=== PATIENT | female | born 1945 | race Asian ===

== ENCOUNTER 2017-08-04 00:56 | Emergency (ER) | payer OTHER, MEDICARE ==
[2017-08-04] MEDS ORDERED: NA CHLORIDE 0.9% 1,000 ML ONE (01:40)
[2017-08-04] MEDS ORDERED: MORPHINE 4 MG/ML SYR ONE (01:40)
[2017-08-04] MEDS ORDERED: ONDANSETRON 4 MG/2 ML VIAL ONE (01:40)
[2017-08-04 02:29] LABS: Absolute Lymphocytes (CBC) 0.8 K/uL (0.7-4.9); Absolute Monocytes 0.4 K/uL (0.1-1.3); Absolute Neutrophil 6.6 K/uL (1.8-8.0); Basophils % 0.5 % (0-1.3); Eosinophils % 1.3 % (0-4.4); Lymphocytes % 9.9 % (15.3-44.8); MCH 29.9 pg (27.0-35.0); MCV 92.8 fL (80-100); MPV 9.8 fL (7.6-11.3); Monocytes % 5.2 % (3.3-12.3); RBC Red Blood Cell Count 4.53 M/uL (3.86-4.86)
[2017-08-04 02:35] LABS: Potassium 3.9 mEq/L (3.6-5.0)
[2017-08-04 02:41] LABS: Albumin 3.7 g/dL (3.2-5.5); Bilirubin Direct 0.1 mg/dL (0-0.2); Bilirubin Total 0.6 mg/dL (0.3-1.2); Protein, Total 6.2 g/dL (6.0-8.3)
--- NOTE | 2017-08-04 04:05 | ER ---
Nurse's Notes [facility] Name: Miriam Ojeda Age: 72 yrs Sex: Female : 1945 Arrival Date: 08/04/2017 Time: 00:57 Bed 19 Private MD: Diagnosis: Constipation Presentation: 08/04 01:09 Presenting complaint: Patient states: she is having abdominal pain x 6 hours has tried bb over the counter medications with no relief. Transition of care: patient was not received from another setting of care. Onset of symptoms was August 04, 2017. Risk Assessment: Do you want to hurt yourself or someone else? Patient reports no desire to harm self or others. Initial Sepsis Screen: Does the patient meet any 2 criteria? No. Patient's initial sepsis screen is negative. Does the patient have a suspected source of infection? No. Patient's initial sepsis screen is negative. Care prior to arrival: None. 01:09 Method Of Arrival: Ambulatory bb 01:09 Acuity: PELON 3 bb Historical: - Allergies: 01:14 No Known Allergies; bb - Home Meds: 01:14 aspirin 81 mg Oral TbEC 1 tab once daily [Active]; lisinopril 10 mg Oral tab 1 tab once bb daily [Active]; metformin 500 mg Oral tab 1 tab 2 times per day [Active]; pravastatin 10 mg Oral tab 1 tab once daily [Active]; - PMHx: 01:14 Diabetes - NIDDM; Hyperlipidemia; Hypertension; knee pain; nephrolithiasis; bb - PSHx: 01:14 Kidney stents; bb - Immunization history:: Adult Immunizations unknown. - Social history:: Smoking status: Patient/guardian denies using tobacco, Patient/guardian denies using alcohol, street drugs. - Ebola Screening: : No symptoms or risks identified at this time. Screenin:30 Abuse screen: Denies threats or abuse. Nutritional screening: No deficits noted. jd3 Tuberculosis screening: No symptoms or risk factors identified. Fall Risk None identified. Assessment: 01:25 General: Appears uncomfortable, Behavior is calm, cooperative, appropriate for age. jd3 Pain: Complains of pain in abdomen Quality of pain is described as aching, crampy. Neuro: Level of Consciousness is awake, alert, obeys commands, Oriented to person, place, time, situation. Cardiovascular: Heart tones S1 S2 present Capillary refill < 3 seconds Patient's skin is warm and dry. Respiratory: Airway is patent Respiratory effort is even, unlabored, Respiratory pattern is regular, symmetrical, Breath sounds are clear bilaterally. GI: Abdomen is round Bowel sounds present X 4 quads. Abd is soft and non tender X 4 quads. Reports constipation, cramping. : No signs and/or symptoms were reported regarding the genitourinary system. EENT: No signs and/or symptoms were reported regarding the EENT system. Derm: Skin is intact, Skin is dry, Skin is normal, Skin temperature is warm. Musculoskeletal: Circulation, motion, and sensation intact. Range of motion: intact in all extremities. 03:20 Reassessment: Patient appears in no apparent distress at this time. Patient and/or jd3 family updated on plan of care and expected duration. Pain level reassessed. Patient is alert, oriented x 3, equal unlabored respirations, skin warm/dry/pink. Patient states feeling better. 04:11 Reassessment: Patient appears in no apparent distress at this time. Patient and/or jd3 family updated on plan of care and expected duration. Pain level reassessed. Patient is alert, oriented x 3, equal unlabored respirations, skin warm/dry/pink. Patient states feeling better. 04:20 Reassessment: Patient appears in no apparent distress at this time. Patient and/or jd3 family updated on plan of care and expected duration. Pain level reassessed. Patient is alert, oriented x 3, equal unlabored respirations, skin warm/dry/pink. pt reported understanding of discharge instructions, even and steady gait upon discharge. Vital Signs: 01:14 BP 163 / 101; Pulse 78; Resp 18 S; Temp 97.9(O); Pulse Ox 97% on R/A; Weight 53.07 kg bb (R); Height 5 ft. 0 in. (152.40 cm) (R); Pain 10/10; 02:18 BP 126 / 83; Pulse 70; Resp 16 S; Pulse Ox 95% on R/A; Pain 0/10; jd3 03:20 BP 117 / 77; Pulse 66; Resp 18 S; Pulse Ox 95% on R/A; Pain 0/10; jd3 04:10 BP 123 / 84; Pulse 68; Resp 18 S; Pulse Ox 95% on R/A; Pain 0/10; jd3 01:14 Body Mass Index 22.85 (53.07 kg, 152.40 cm) bb ED Course: 00:57 Patient arrived in ED. am2 01:10 Triage completed. bb 01:14 Arm band placed on Patient placed in an exam room, on a stretcher, on pulse oximetry. bb Family accompanied patient. 01:25 Renny Castaneda RN is Primary Nurse. jd3 01:28 Cruz Santos NP is PHCP. pm1 01:28 Kevin Ashley MD is Attending Physician. pm1 01:30 Patient has correct armband on for positive identification. Placed in gown. Bed in low jd3 position. Call light in reach. Side rails up X2. Adult w/ patient. 01:50 Inserted saline lock: 22 gauge in right forearm, using aseptic technique. Blood jd3 collected. 03:[address] via wheelchair. kw1 03:14 CT Abd/Pelvis - W/Contrast In Process Unspecified. EDMS 03:27 CT completed. Patient tolerated procedure well. Patient moved back from CT. sj 04:13 No provider procedures requiring assistance completed. IV discontinued, intact, jd3 bleeding controlled, No redness/swelling at site. Pressure dressing applied. Administered Medications: 02:00 Drug: NS 0.9% 1000 ml Route: IV; Rate: 1000 ml; Site: right forearm; jd3 03:46 Follow up: Response: No adverse reaction; IV Status: Completed infusion; IV Intake: jd3 1000ml 02:01 Drug: morphine 2 mg Route: IVP; Site: right forearm; jd3 03:46 Follow up: Response: No adverse reaction; Pain is decreased jd3 02:01 Drug: Zofran 4 mg Route: IVP; Site: right forearm; jd3 03:46 Follow up: Response: No adverse reaction jd3 Intake: 03:46 IV: 1000ml; Total: 1000ml. jd3 Outcome: 04:04 Discharge ordered by . pm1 04:21 Discharged to home ambulatory, with family. jd3 04:21 Condition: stable 04:21 Discharge instructions given to patient, family, Instructed on discharge instructions, follow up and referral plans. medication usage, Demonstrated understanding of instructions, follow-up care, medications, Prescriptions given X 1. 04:22 Patient left the ED. jd3 Signatures: Dispatcher [employer] Karmen Espinosa Brenda, RN RN bb Cruz Santos, FREE LANCE ARTIST FREE LANCE ARTIST pm1 Briana Cortes am2 Renny Castaneda RN RN jd3 Wilhelm, Kimberly kw1 Corrections: (The following items were deleted from the chart) 03:10 02:47 [facility] moved to [facility] via [facility]. kw1 kw1
--- NOTE | 2017-08-04 04:05 | EDPHYS ---
Physician Documentation [facility] Name: Miriam Ojeda Age: 72 yrs Sex: Female : 1945 Arrival Date: 08/04/2017 Time: 00:57 Bed 19 Private MD: ED Physician Kevin Ashley HPI: 08/04 03:57 This 72 yrs old Female presents to ER via Ambulatory with complaints of Abdominal pm1 Pain, Abdominal Swelling. 03:57 The patient presents with abdominal pain in the lower abdomen. Onset: The pm1 symptoms/episode began/occurred 6 hour(s) ago. The symptoms do not radiate. Associated signs and symptoms: Pertinent positives: constipation, for 2 days, Pertinent negatives: nausea, vomiting, and diarrhea, dysuria, fever. The symptoms are described as crampy. Modifying factors: The symptoms are alleviated by nothing, the symptoms are aggravated by nothing. Severity of pain: in the emergency department the pain is actually worse. The patient has experienced similar episodes in the past, a few times, take colace in the past for constipation. The patient has not recently seen a physician. Historical: - Allergies: 01:14 No Known Allergies; bb - Home Meds: 01:14 aspirin 81 mg Oral TbEC 1 tab once daily [Active]; lisinopril 10 mg Oral tab 1 tab once bb daily [Active]; metformin 500 mg Oral tab 1 tab 2 times per day [Active]; pravastatin 10 mg Oral tab 1 tab once daily [Active]; - PMHx: 01:14 Diabetes - NIDDM; Hyperlipidemia; Hypertension; knee pain; nephrolithiasis; bb - PSHx: 01:14 Kidney stents; bb - Immunization history:: Adult Immunizations unknown. - Social history:: Smoking status: Patient/guardian denies using tobacco, Patient/guardian denies using alcohol, street drugs. - Ebola Screening: : No symptoms or risks identified at this time. ROS: 03:57 Constitutional: Negative for fever, chills, and weight loss, Eyes: Negative for injury, pm1 pain, redness, and discharge, ENT: Negative for injury, pain, and discharge, Neck: Negative for injury, pain, and swelling, Cardiovascular: Negative for chest pain, palpitations, and edema, Respiratory: Negative for shortness of breath, cough, wheezing, and pleuritic chest pain. 03:57 Back: Negative for injury and pain, : Negative for injury, bleeding, discharge, and swelling, MS/Extremity: Negative for injury and deformity, Skin: Negative for injury, rash, and discoloration, Neuro: Negative for headache, weakness, numbness, tingling, and seizure. 03:57 Abdomen/GI: Positive for abdominal pain, constipation, Negative for nausea, vomiting, and diarrhea. Exam: 03:57 Constitutional: This is a well developed, well nourished patient who is awake, alert, pm1 and in no acute distress. Head/Face: Normocephalic, atraumatic. Eyes: Pupils equal round and reactive to light, extra-ocular motions intact. Lids and lashes normal. Conjunctiva and sclera are non-icteric and not injected. Cornea within normal limits. Periorbital areas with no swelling, redness, or edema. ENT: Nares patent. No nasal discharge, no septal abnormalities noted. Tympanic membranes are normal and external auditory canals are clear. Oropharynx with no redness, swelling, or masses, exudates, or evidence of obstruction, uvula midline. Mucous membranes moist. Neck: Trachea midline, no thyromegaly or masses palpated, and no cervical lymphadenopathy. Supple, full range of motion without nuchal rigidity, or vertebral point tenderness. No Meningismus. Chest/axilla: Normal chest wall appearance and motion. Nontender with no deformity. No lesions are appreciated. Cardiovascular: Regular rate and rhythm with a normal S1 and S2. No gallops, murmurs, or rubs. Normal PMI, no JVD. No pulse deficits. Respiratory: Lungs have equal breath sounds bilaterally, clear to auscultation and percussion. No rales, rhonchi or wheezes noted. No increased work of breathing, no retractions or nasal flaring. 03:57 Back: No spinal tenderness. No costovertebral tenderness. Full range of motion. Skin: Warm, dry with normal turgor. Normal color with no rashes, no lesions, and no evidence of cellulitis. MS/ Extremity: Pulses equal, no cyanosis. Neurovascular intact. Full, normal range of motion. 03:57 Abdomen/GI: Inspection: abdomen appears normal, Bowel sounds: normal, Palpation: soft, mild abdominal tenderness, in the left lower quadrant, mass, that is pulsatile, rebound tenderness, is not appreciated. 03:57 Neuro: Orientation: is normal, Motor: is normal, Sensation: is normal, no obvious gross deficits. Vital Signs: 01:14 BP 163 / 101; Pulse 78; Resp 18 S; Temp 97.9(O); Pulse Ox 97% on R/A; Weight 53.07 kg bb (R); Height 5 ft. 0 in. (152.40 cm) (R); Pain 10/10; 02:18 BP 126 / 83; Pulse 70; Resp 16 S; Pulse Ox 95% on R/A; Pain 0/10; jd3 03:20 BP 117 / 77; Pulse 66; Resp 18 S; Pulse Ox 95% on R/A; Pain 0/10; jd3 04:10 BP 123 / 84; Pulse 68; Resp 18 S; Pulse Ox 95% on R/A; Pain 0/10; jd3 01:14 Body Mass Index 22.85 (53.07 kg, 152.40 cm) bb MDM: 01:28 Patient medically screened. pm1 03:57 Data reviewed: vital signs. Data interpreted: Pulse oximetry: on room air is 95 %. pm1 Interpretation: normal. Counseling: I had a detailed discussion with the patient and/or guardian regarding: the historical points, exam findings, and any diagnostic results supporting the discharge/admit diagnosis, radiology results, to return to the emergency department if symptoms worsen or persist or if there are any questions or concerns that arise at home. 08/04 01:33 Order name: Urine Microscopic Only pm1 08/04 01:33 Order name: Basic Metabolic Panel; Complete Time: 02:57 pm08/04 01:33 Order name: CBC with Diff; Complete Time: 02:57 pm08/04 01:33 Order name: Creatinine for Radiology; Complete Time: 02:57 pm08/04 01:33 Order name: Hepatic Function; Complete Time: 02:57 pm08/04 01:33 Order name: Lipase; Complete Time: 02:57 pm08/04 01:33 Order name: IV Saline Lock; Complete Time: 02:01 pm08/04 01:33 Order name: Labs collected and sent; Complete Time: 02:01 pm08/04 01:33 Order name: Urine Dipstick-Ancillary (obtain specimen); Complete Time: 03:50 pm1 08/04 01:33 Order name: CT Abd/Pelvis - W/Contrast pm1 08/04 04:14 Order name: Urine Dipstick--Ancillary (enter results) nathan Administered Medications: 02:00 Drug: NS 0.9% 1000 ml Route: IV; Rate: 1000 ml; Site: right forearm; jd3 03:46 Follow up: Response: No adverse reaction; IV Status: Completed infusion; IV Intake: jd3 1000ml 02:01 Drug: morphine 2 mg Route: IVP; Site: right forearm; jd3 03:46 Follow up: Response: No adverse reaction; Pain is decreased jd3 02:01 Drug: Zofran 4 mg Route: IVP; Site: right forearm; jd3 03:46 Follow up: Response: No adverse reaction jd3 Disposition: 07:18 Co-signature as Attending Physician, Kevin Ashley MD Available for consultation at ps1 all times. . Disposition: 08/04/17 04:04 Discharged to Home. Impression: Constipation. - Condition is Stable. - Discharge Instructions: Constipation, Adult. - Prescriptions for Miralax 17 gram/dose Oral - take 1 packet by ORAL route once daily As needed dilute powder in 8 ounces of water or juice; 7 packet. - Medication Reconciliation Form, Thank You Letter form. - Follow up: Emergency Department; When: As needed; Reason: Worsening of condition. Follow up: Private Physician; When: 2 - 3 days; Reason: Recheck today's complaints, Continuance of care, Re-evaluation by your physician. - Problem is new. - Symptoms have improved. Signatures: Dispatcher [employer] EDRona Scott RN RN bb Marinas, Patrick, MANAGER STEEL MANAGER STEEL pm1 Renny Castaneda RN RN jd3 Singer, Phillip, MD MD ps1 Corrections: (The following items were deleted from the chart) 04:22 04:04 08/04/2017 04:04 Discharged to Home. Impression: Constipation. Condition is jd3 Stable. Forms are Medication Reconciliation Form, Thank You Letter, Antibiotic Education, Prescription Opioid Use. Follow up: Emergency Department; When: As needed; Reason: Worsening of condition. Follow up: Private Physician; When: 2 - 3 days; Reason: Recheck today's complaints, Continuance of care, Re-evaluation by your physician. Problem is new. Symptoms have improved. pm1
[2017-08-04 04:27] VITALS: TEMP 97.9
[2017-08-04 04:28] VITALS: O2SAT 95
[2017-08-04 04:30] VITALS: BP 123/84
[2017-08-04 06:20] LABS: Urine Bacteria <20 /HPF (<20); Urine Culture Reflex Order NOT NEEDED; Urine RBC <5 /HPF (NONE SEEN)
[2017-08-04 06:40] LABS: Urine Blood TRACE (NEG); Urine Glucose NEGATIVE (NEG); Urine Protein NEGATIVE (NEG); Urine Specific Gravity <1.005 (1.005-1.030)
--- NOTE | 2017-08-04 08:18 | RAD REPORT ---
EXAM DESCRIPTION: CT - Abdomen Pelvis W Contrast - 08/04/2017 4:10 am CLINICAL HISTORY: Abdominal pain for 6 hours COMPARISON: April 2017 TECHNIQUE: Computed axial tomography of the abdomen pelvis was obtained. 100 cc Isovue-300 was admin istered intravenously. A preliminary report was generated by [facility] and reviewed prior to this dictation All CT scans are performed using dose optimization technique as appropriate and may include automated exposure control or mA/KV adjustment according to patient size. FINDINGS: Left ureteral stent has been removed since the prior exam. 2 millimeter nonobstructing lef t renal calculus is present. Bilateral borderline pyelocaliectasis is present without visualization o f an obstruction. A ureteral calculus is not seen. Liver, spleen, pancreas and adrenals appear unremarkable. There is no evidence of diverticulitis. The appendix is normal. A large amount stool is present throughout the colon. A loop of small bowel is mildly dilated within right lower quadrant. Small amount of ascites is seen. IMPRESSION: Left ureteral stent has been removed. Nonobstructing left renal calculus is seen. Border line bilateral pyelocaliectasis without visualization of an obstruction Large amount of stool within the colon Mildly dilated loop of small bowel may represent an enteritis or ileus. Small amount of ascites
== END 2017-08-04 04:22 | disposition home or self-care (01) ==
LOC: ER 00:56
DX: K59.00 Constipation, unspecified (principal); I10 Essential (primary) hypertension; E11.9 Type 2 diabetes mellitus without complications; Z79.82 Long term (current) use of aspirin
CPT/HCPCS: 36415; 74177; 80048; 80076; 83690; 85025; J2405; J7030; Q9967; 81003; 81015; 96361; 96374; 96375; 99284

== ENCOUNTER 2020-12-30 11:33 | Emergency (ER) | payer MEDICARE, OTHER ==
--- NOTE | 2020-12-30 12:25 | EDPHYS ---
Physician Documentation [facility] Name: Miriam Ojeda Age: 75 yrs Sex: Female : 1945 Arrival Date: 12/30/2020 Time: 11:40 Bed Waiting Private MD: Oseas Haji C ED Physician Scot Noel HPI: 12/30 12:32 This 75 yrs old Female presents to ER via Ambulatory with complaints of Abscess kb on finger. 12:32 The patient presents with an abscess of the dorsal aspect of distal phalanx of left kb index finger. Description: swollen. Onset: The symptoms/episode began/occurred 3 week(s) ago. Possible cause(s): unknown. Associated signs and symptoms: The patient has no apparent associated signs or symptoms. Modifying factors: the symptoms are alleviated by nothing, the symptoms are aggravated by nothing. Severity of symptoms: At their worst the symptoms were mild, in the emergency department the symptoms are unchanged. The patient has not experienced similar symptoms in the past. The patient has not recently seen a physician. 12:33 Reports growth on left index finger started 2-3 weeks ago and has been getting better. kb Reports it is painless. Tried to pop it at home, but did not get anything out of it. . Historical: - Allergies: 12:19 No Known Allergies; vg1 - Home Meds: 12:19 aspirin 81 mg Oral TbEC 1 tab once daily [Active]; lisinopril 10 mg Oral tab 1 tab once vg1 daily [Active]; metformin 500 mg Oral tab 1 tab 2 times per day [Active]; pravastatin 10 mg Oral tab 1 tab once daily [Active]; - PMHx: 12:19 Diabetes - NIDDM; Hyperlipidemia; Hypertension; knee pain; nephrolithiasis; vg1 - Immunization history:: Client reports receiving the 2nd dose of the Covid vaccine. - Social history:: Smoking status: Patient denies any tobacco usage or history of. ROS: 12:31 Constitutional: Negative for fever, chills, and weight loss. kb 12:31 Skin: Positive for abscess, swelling, of the dorsal aspect of distal phalanx of left index finger. 12:31 All other systems are negative. Exam: 12:31 Constitutional: This is a well developed, well nourished patient who is awake, alert, kb and in no acute distress. Head/Face: Normocephalic, atraumatic. ENT: Moist Mucous membranes Respiratory: Respirations even and unlabored. No increased work of breathing, no retractions or nasal flaring. MS/ Extremity: Pulses equal, no cyanosis. Neurovascular intact. Full, normal range of motion. Neuro: Awake and alert, GCS 15, oriented to person, place, time, and situation. Moves all extremities. Normal gait. Psych: Awake, alert, with orientation to person, place and time. Behavior, mood, and affect are within normal limits. 12:31 Skin: cyst noted to left index finger. Vital Signs: 12:16 BP 169 / 89; Pulse 63; Resp 16; Temp 98.5(O); Pulse Ox 100% ; Weight 49.9 kg; Height 5 vg1 ft. 0 in. (152.40 cm); Pain 2/10; 12:16 Body Mass Index 21.48 (49.90 kg, 152.40 cm) vg1 MDM: 12:22 Patient medically screened. kb 12:31 Data reviewed: vital signs, nurses notes. Data interpreted: Pulse oximetry: on room air kb is 100 %. Interpretation: normal. 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 Administered Medications: No medications were administered Disposition: 12/31 11:34 Co-signature as Attending Physician, Scot Noel MD I agree with the assessment and shaan plan of care. Disposition Summary: 12/30/20 12:25 Discharge Ordered Location: Home kb Condition: Stable kb Diagnosis - Digital Mucous Cyst kb Followup: kb - With: Emergency Department - When: As needed - Reason: Worsening of condition Followup: kb - With: Private Physician - When: 2 - 3 days - Reason: Recheck today's complaints, Continuance of care, Re-evaluation by your physician Discharge Instructions: - Discharge Summary Sheet kb Forms: - Medication Reconciliation Form kb - Thank You Letter kb - Antibiotic Education kb - Prescription Opioid Use kb Signatures: Payton Urbano, AMEE-C AMEE-Scot Blackburn MD MD cha Garcia, Victoria RN RN vg1 Corrections: (The following items were deleted from the chart) 12/30 12:32 12:31 Skin: Positive for of the dorsal aspect of distal phalanx of left index finger, kb cyst, kb
--- NOTE | 2020-12-30 12:25 | ER ---
Nurse's Notes [facility] Name: Miriam Ojeda Age: 75 yrs Sex: Female : 1945 Arrival Date: 12/30/2020 Time: 11:40 Bed Waiting Private MD: Oseas Haji C Diagnosis: Digital Mucous Cyst Presentation: 12/30 12:16 Chief complaint: Patient states: For about 2-3 weeks has had what appears to be a vg1 blister on Left index finger. Pt states no pain unless she touches it. Pt states pocked it with a needle but nothing came out. Coronavirus screen: Vaccine status: Patient reports receiving the 2nd dose of the covid vaccine. Client denies travel out of the [place] in the last 14 days. Ebola Screen: Patient negative for fever greater than or equal to 101.5 degrees Fahrenheit, and additional compatible Ebola Virus Disease symptoms. Initial Sepsis Screen: Does the patient meet any 2 criteria? No. Patient's initial sepsis screen is negative. Does the patient have a suspected source of infection? No. Patient's initial sepsis screen is negative. Risk Assessment: Do you want to hurt yourself or someone else? Patient reports no desire to harm self or others. Onset of symptoms was December 16, 2020. 12:16 Method Of Arrival: Ambulatory vg1 12:16 Acuity: PELON 4 vg1 Triage Assessment: 12:19 General: Appears in no apparent distress. comfortable, Behavior is calm, cooperative. vg1 Pain: Complains of pain in dorsal aspect of distal phalanx of left index finger. Historical: - Allergies: 12:19 No Known Allergies; vg1 - Home Meds: 12:19 aspirin 81 mg Oral TbEC 1 tab once daily [Active]; lisinopril 10 mg Oral tab 1 tab once vg1 daily [Active]; metformin 500 mg Oral tab 1 tab 2 times per day [Active]; pravastatin 10 mg Oral tab 1 tab once daily [Active]; - PMHx: 12:19 Diabetes - NIDDM; Hyperlipidemia; Hypertension; knee pain; nephrolithiasis; vg1 - Immunization history:: Client reports receiving the 2nd dose of the Covid vaccine. - Social history:: Smoking status: Patient denies any tobacco usage or history of. Screenin:41 Abuse screen: Denies threats or abuse. Nutritional screening: No deficits noted. vg1 Tuberculosis screening: No symptoms or risk factors identified. Fall Risk None identified. Vital Signs: 12:16 BP 169 / 89; Pulse 63; Resp 16; Temp 98.5(O); Pulse Ox 100% ; Weight 49.9 kg; Height 5 vg1 ft. 0 in. (152.40 cm); Pain 2/10; 12:16 Body Mass Index 21.48 (49.90 kg, 152.40 cm) vg1 ED Course: 11:40 Patient arrived in ED. mr 11:40 Oseas Haji MD is Private Physician. mr 12:19 Triage completed. vg1 12:19 Arm band placed on. vg1 12:22 Payton Urbano [facility]C [facility] kb 12:22 Scot Noel MD is Attending Physician. kb 12:41 Patient has correct armband on for positive identification. vg1 12:41 No provider procedures requiring assistance completed. Patient did not have IV access vg1 during this emergency room visit. Administered Medications: No medications were administered Outcome: 12:25 Discharge ordered by . kb 12:41 Discharged to home ambulatory, with family. vg1 12:41 Condition: stable 12:41 Discharge instructions given to patient, Instructed on discharge instructions, follow up and referral plans. Demonstrated understanding of instructions, follow-up care. 12:41 Patient left the ED. vg1 Signatures: Payton Urbano FNP-C FNP-Ckb Rivera, Mary mr SchulteJuliette, RN RN vg1
[2020-12-30 12:55] VITALS: BP 169/89; TEMP 98.5; O2SAT 100
--- OUTSIDE RECORDS SUMMARY | 2021-01-11 04:55 | XMS REPORT | Continuity of Care Document ---
:1945 Author Organization [facility] t Address [address] [place] [address] Care Team Providers Name Role Phone Unavailable Unavailable Unavailable Problems This patient has no known problems. Allergies, Adverse Reactions, Alerts This patient has no known allergies or adverse reactions. Medications Ordered Filled Start Stop Current Ordering Indication Dosage Frequency Signature Comments Components Source Medication Medication Date Date Medication? Clinician (SIG) Name Name True Metrix True Metrix Yes Na Azevedo as [facility] Blood Blood 7-06 [facility] Aspirin Aspirin Yes Na Azevedo [address] [facility] Lisinopril Lisinopril Yes Na Azevedo [address] [facility] Atorvastati Atorvastati Yes Na Azevedo [address] [facility] n Calcium n Calcium [facility] Amlodipine Amlodipine Yes Na Azevedo [address] [facility] Besylate Besylate [facility] Metformin Metformin Yes Na Azevedo [address] [facility] HCl HCl with a [facility] Procedures This patient has no known procedures. Encounters Start End Encounter Admission Attending Care Care Encounter Source Date/Time Date/Time Type Type Clinicians Facility Department ID 2020-04-25 2020-04-25 Outpatient [facility] [id number] [facility] 2019-12-07 2019-12-07 Outpatient [facility] [id number] [facility] 2019-12-07 2019-12-07 [facility] [id number] 2019-11-30 2019-11-30 Outpatient [facility] [id number] [facility] 2019-11-30 2019-11-30 Outpatient [facility] [id number] [facility] 2019-11-30 2019-11-30 Outpatient [facility] [id number] [facility] 2019-09-04 2019-09-04 [facility] [id number] [facility] 11:20:00 11:20:00 [facility] Results This patient has no known results.
== END 2020-12-30 12:41 | disposition home or self-care (01) ==
LOC: ER 11:33
DX: M71.342 Other bursal cyst, left hand (principal); I10 Essential (primary) hypertension; E11.9 Type 2 diabetes mellitus without complications; Z79.82 Long term (current) use of aspirin
CPT/HCPCS: 99281

== ENCOUNTER 2021-08-27 08:45 | Emergency (ER) | payer OTHER ==
[2021-08-27 09:22] LABS: Urine Blood Negative (Negative); Urine Glucose Negative (Negative); Urine Protein Negative (Negative)
[2021-08-27 09:42] LABS: Urine Bacteria <20 /HPF (<20); Urine Mucus 1+ /HPF (NONE SEEN); Urine RBC <5 /HPF (NONE SEEN)
[2021-08-27 09:44] LABS: Absolute Lymphocytes (CBC) 1.1 K/uL (0.7-4.9); Hematocrit 40.3 % (36.0-45.0); Lymphocytes % 14.5 % (15.3-44.8); MPV 9.8 fL (7.6-11.3); RBC Red Blood Cell Count 4.44 M/uL (3.86-4.86)
[2021-08-27 09:45] LABS: Protime INR 1.16
--- NOTE | 2021-08-27 09:58 | RAD REPORT ---
EXAM DESCRIPTION: RAD - Chest Single View - 08/27/2021 9:38 am CLINICAL HISTORY: CHEST PAIN COMPARISON: Chest Pa And Lat (2 Views) dated 07/08/2021; Chest Single View dated 04/10/2017; Chest Sin gle View dated 08/02/2015; Chest Single View dated 07/28/2015; Abdomen Pelvis W Contrast dated 8 FINDINGS: Lines: None. Lungs: No evidence of edema or pneumonia. Calcified nodules bilaterally. Pleural: No significant pleural effusions or pneumothorax. Cardiac: The heart size is within normal limits. Bones: No acute fractures. Other: Elongated thoracic aorta IMPRESSION: No acute cardiopulmonary disease.
[2021-08-27 10:00] LABS: Albumin 3.3 g/dL (3.4-5.0); Bilirubin Direct 0.1 mg/dL (0-0.2); Bilirubin Total 0.4 mg/dL (0.2-1.0); Magnesium 1.8 mg/dL (1.8-2.4); Potassium 4.1 mmol/L (3.5-5.1); Troponin High Sensitivity 20.4 pg/mL (<58.9)
--- NOTE | 2021-08-27 10:48 | EDPHYS ---
Physician Documentation [facility] Name: Miriam Ojeda Age: 76 yrs Sex: Female : 1945 Arrival Date: 08/27/2021 Time: 08:46 Bed 5 Private MD: Scot Tristan HPI: 08/27 09:04 This 76 yrs old Female presents to ER via Ambulatory with complaints of Chest jm Pain. 09:04 The patient or guardian reports chest pain that is located primarily in the substernal [facility] area. Onset: gradually, 3 day(s) ago. The pain does not radiate. Associated signs and symptoms: Pertinent positives: weakness. The chest pain is described as aching, sharp. Duration: The patient or guardian reports multiple episodes, that wax and wane. Modifying factors: The symptoms are alleviated by nothing. the symptoms are aggravated by nothing. The patient has experienced similar episodes in the past. Historical: - Allergies: 08:56 No Known Allergies; ap3 - Home Meds: 08:56 metformin 500 mg Oral tab 1 tab 2 times per day [Active]; lisinopril 10 mg Oral tab 1 ap3 tab once daily [Active]; aspirin 81 mg Oral TbEC 1 tab once daily [Active]; pravastatin 10 mg Oral tab 1 tab once daily [Active]; - PMHx: 08:56 Diabetes - NIDDM; Hyperlipidemia; Hypertension; knee pain; nephrolithiasis; ap3 - Immunization history:: Client reports receiving the 2nd dose of the Covid vaccine. - Social history:: Smoking status: Patient denies any tobacco usage or history of. ROS: 09:04 Constitutional: Positive for body aches, fatigue. jmm 09:04 Cardiovascular: Positive for chest pain. 09:04 Neuro: Positive for weakness. 09:04 All other systems are negative. Exam: 09:04 Constitutional: This is a well developed, well nourished patient who is awake, alert, jmm and in no acute distress. Head/Face: atraumatic. Eyes: EOMI, no conjunctival erythema appreciated ENT: Moist Mucus Membranes Neck: Trachea midline, Supple Chest/axilla: Normal chest wall appearance and motion. Cardiovascular: Regular rate and rhythm. No edema appreciated Respiratory: Normal respirations, no respiratory distress appreciated Abdomen/GI: Non distended, soft Back: Normal ROM Skin: General appearance color normal MS/ Extremity: Moves all extremities, no obvious deformities appreciated, no edema noted to the lower extremities Neuro: Awake and alert Psych: Behavior is normal, Mood is normal, Patient is cooperative and pleasant Vital Signs: 08:52 BP 128 / 82; Pulse 93; Resp 17; Temp 98.4; Pulse Ox 99% ; Weight 49.9 kg; Height 5 ft. ap3 0 in. (152.40 cm); 09:55 Pulse 85; Resp 17; Pulse Ox 98% on R/A; Pain 0/10; ss 09:56 BP 111 / 57; ss 10:32 BP 103 / 66; Pulse 82; Resp 16; Pulse Ox 100% on R/A; Pain 0/10; ss 08:52 Body Mass Index 21.48 (49.90 kg, 152.40 cm) ap3 MDM: 09:04 Patient medically screened. shaan 10:46 The patient was given aspirin in the Emergency Department. Data reviewed: vital signs, [facility] nurses notes. Counseling: I had a detailed discussion with the patient and/or guardian regarding: the historical points, exam findings, and any diagnostic results supporting the discharge/admit diagnosis, lab results, radiology results. ED course: I discussed the patient with Dr. Adams whom accepted the patient to his service. . 10:59 Refusal of service: The patient/guardian displays adequate decision making capability [facility] and despite a detailed discussion of alternatives, benefits, risks, and consequences refuses: Admission to the hospital for further work-up and treatment. 08/27 09:04 Order name: Basic Metabolic Panel; Complete Time: 10:01 [facility] 08/27 09:04 Order name: CBC with Diff; Complete Time: 09:59 [facility] 08/27 09:04 Order name: LFT's; Complete Time: 10:01 [facility] 08/27 09:04 Order name: Magnesium; Complete Time: 10:01 [facility] 08/27 09:04 Order name: NT PRO-BNP; Complete Time: 10:01 [facility] 08/27 09:04 Order name: PT-INR; Complete Time: 09:46 [facility] 08/27 09:04 Order name: Troponin HS; Complete Time: 10:01 [facility] 08/27 09:04 Order name: XRAY Chest (1 view); Complete Time: 09:59 [facility] 08/27 09:04 Order name: EKG; Complete Time: 09:05 [facility] 08/27 09:04 Order name: SARS-COV-2 RT PCR (Document "Date of Onset" if Symptomatic); Complete Time: [facility] 11:12 08/27 09:22 Order name: Urine Dipstick-Ancillary; Complete Time: 09:22 [facility] 08/27 09:23 Order name: Urine Microscopic Only; Complete Time: 09:44 em1 08/27 09:45 Order name: Urine Culture [facility] 08/27 09:04 Order name: Cardiac monitoring; Complete Time: 09:37 [facility] 08/27 09:04 Order name: EKG - Nurse/Tech; Complete Time: 09:38 [facility] 08/27 09:04 Order name: IV Saline Lock; Complete Time: 09:38 [facility] 08/27 09:04 Order name: Labs collected and sent; Complete Time: 09:38 [facility] 08/27 09:04 Order name: O2 Per Protocol; Complete Time: 09:38 [facility] 08/27 09:04 Order name: O2 Sat Monitoring; Complete Time: 09:38 [facility] 08/27 09:04 Order name: Urine Dipstick-Ancillary (obtain specimen); Complete Time: 09:23 [facility] Administered Medications: 11:00 Not Given (Pt took her daily ASA this AM. DEEPTI Kelly notifiedd): Aspirin Chewable Tablet ss 324 mg PO once; 81 mg tablets x 4 Disposition Summary: 08/27/21 11:00 Discharge Ordered Location: Home(08/27/21 11:00) [facility] Condition: Stable(08/27/21 11:00) [facility] Diagnosis - Chest pain, unspecified(08/27/21 11:00) [facility] Followup: [facility] - With: Jerome Ortez MD - When: 2 - 3 days - Reason: Recheck today's complaints, Continuance of care, Re-evaluation by your physician Discharge Instructions: - Discharge Summary Sheet [facility] - Nonspecific Chest Pain, Adult [facility] Forms: - Medication Reconciliation Form [facility] - Thank You Letter [facility] - Antibiotic Education [facility] - Prescription Opioid Use [facility] Signatures: Dispatcher [employer] [facility] Scot Noel MD MD cha Mickail, Joel, PA PA [facility] Briana Walden RN RN ap3 Idalia Foster RN ss Corrections: (The following items were deleted from the chart) 10:47 Observation [facility] 10:47 Raul Adams [facility] 10:47 Telemetry/MedSurg (observation) [facility] 10:47 Stable [facility] 10:47 new [facility] 10:47 are unchanged [facility] 10:47 Standard [facility] 10:47 [facility] 10:47 Chest pain, unspecified [facility]
--- NOTE | 2021-08-27 10:48 | ER ---
Nurse's Notes [facility] Name: Miriam Ojeda Age: 76 yrs Sex: Female : 1945 Arrival Date: 08/27/2021 Time: 08:46 Bed 5 Private MD: Diagnosis: Chest pain, unspecified Presentation: 08/27 08:52 Chief complaint: Patient states: she had a little bit of chest pain a few days ago, but ap3 hasn't had any since. However patient reports feeling tired and lazy the last few days. Patient denies pain and shortness of breath at this time. Coronavirus screen: At this time, the client does not indicate any symptoms associated with coronavirus-19. Ebola Screen: No symptoms or risks identified at this time. Initial Sepsis Screen: Does the patient meet any 2 criteria? No. Patient's initial sepsis screen is negative. Does the patient have a suspected source of infection? No. Patient's initial sepsis screen is negative. Risk Assessment: Do you want to hurt yourself or someone else? Patient reports no desire to harm self or others. Onset of symptoms was August 24, 2021. 08:52 Method Of Arrival: Ambulatory ap3 08:52 Acuity: PELON 3 ap3 Triage Assessment: 08:56 General: Appears in no apparent distress. Behavior is calm, cooperative, appropriate ap3 for age. General: Reports fatigue for 2-3 days. Pain: Denies pain. Neuro: Level of Consciousness is awake, alert, obeys commands, Oriented to person, place, time, situation, Appropriate for age Gait is steady, Speech is normal. Cardiovascular: Denies chest pain, shortness of breath, Patient's skin is warm and dry. Respiratory: Airway is patent Respiratory effort is even, unlabored, Respiratory pattern is regular, symmetrical. Historical: - Allergies: 08:56 No Known Allergies; ap3 - Home Meds: 08:56 metformin 500 mg Oral tab 1 tab 2 times per day [Active]; lisinopril 10 mg Oral tab 1 ap3 tab once daily [Active]; aspirin 81 mg Oral TbEC 1 tab once daily [Active]; pravastatin 10 mg Oral tab 1 tab once daily [Active]; - PMHx: 08:56 Diabetes - NIDDM; Hyperlipidemia; Hypertension; knee pain; nephrolithiasis; ap3 - Immunization history:: Client reports receiving the 2nd dose of the Covid vaccine. - Social history:: Smoking status: Patient denies any tobacco usage or history of. Screenin:57 Abuse screen: Denies threats or abuse. Nutritional screening: No deficits noted. ap3 Tuberculosis screening: No symptoms or risk factors identified. Fall Risk None identified. Assessment: 09:00 Reassessment: Pt reports she experienced pain a few days ago in her chest, but no ss longer has pain. Saw her PCP yesterday and had an outpatient EKG which her doctor told her looked normal. Pt states since then, especially in the mornings she feels tired/ lazy. is concerned and wants her checked because when he had chest pain he had blocked coronary vessels. General: Appears in no apparent distress. comfortable, Behavior is calm, cooperative. Pain: Denies pain. Neuro: [place]aranjo Agitation-Sedation Scale (RASS): 0 - Alert and Calm Level of Consciousness is awake, alert, obeys commands, Oriented to person, place, time, situation. Cardiovascular: Capillary refill < 3 seconds is brisk in bilateral fingers. Respiratory: Airway is patent Respiratory effort is even, unlabored, Respiratory pattern is regular, symmetrical, Denies cough, shortness of breath pain with respiration, pain with cough, pain with movement. GI: Abdomen is non-distended, Patient currently denies abdominal pain, diarrhea, nausea, vomiting. : No signs and/or symptoms were reported regarding the genitourinary system. Denies burning with urination, urinary frequency. EENT: Oral mucosa is moist. Derm: Skin is intact, is healthy with good turgor, Skin is dry, Skin is pink, warm \T\ dry. normal. Musculoskeletal: Circulation, motion, and sensation intact. Range of motion: intact in all extremities, Swelling absent. 10:30 Reassessment: Patient appears in no apparent distress at this time. Patient and/or ss family updated on plan of care and expected duration. Pain level reassessed. Patient is alert, oriented x 3, equal unlabored respirations, skin warm/dry/pink. Vital Signs: 08:52 BP 128 / 82; Pulse 93; Resp 17; Temp 98.4; Pulse Ox 99% ; Weight 49.9 kg; Height 5 ft. ap3 0 in. (152.40 cm); 09:55 Pulse 85; Resp 17; Pulse Ox 98% on R/A; Pain 0/10; ss 09:56 BP 111 / 57; ss 10:32 BP 103 / 66; Pulse 82; Resp 16; Pulse Ox 100% on R/A; Pain 0/10; ss 08:52 Body Mass Index 21.48 (49.90 kg, 152.40 cm) ap3 ED Course: 08:46 Patient arrived in ED. as 08:54 Triage completed. ap3 08:57 Arm band placed on left wrist. ap3 08:57 Patient maintains SpO2 saturation greater than 95% on room air. ap3 08:59 Robin Alexis PA is PHCP. jmm 09:00 Scot Noel MD is Attending Physician. jmm 09:33 Inserted saline lock: 22 gauge in right antecubital area, using aseptic technique. ss 09:37 Idalia Foster, TERRI is Primary Nurse. ss 09:39 XRAY Chest (1 view) In Process Unspecified. EDMS 09:41 Patient has correct armband on for positive identification. Bed in low position. Call ss light in reach. Side rails up X2. Client placed on continuous cardiac and pulse oximetry monitoring. NIBP monitoring applied. lights dimmed for comfort. Door closed. Offered blanket, patient politely declined. 10:47 Raul Adams is Hospitalizing Provider. [facility] 10:59 Jerome Ortez MD is Referral Physician. [facility] 11:16 No provider procedures requiring assistance completed. IV discontinued, intact, iw bleeding controlled, No redness/swelling at site. Pressure dressing applied. Administered Medications: 11:00 Not Given (Pt took her daily ASA this AM. DEEPTI Kelly notifiedd): Aspirin Chewable Tablet ss 324 mg PO once; 81 mg tablets x 4 Medication: 09:00 VIS not applicable for this client. Outcome: 10:47 Decision to Hospitalize by Provider. [facility] 11:00 Discharge ordered by . [facility] 11:16 Discharged to home ambulatory. iw 11:16 Condition: good 11:16 Discharge instructions given to patient, Instructed on discharge instructions, follow up and referral plans. Demonstrated understanding of instructions, follow-up care. 11:17 Patient left the ED. iw Signatures: Dispatcher [employer] EDMS Robin Alexis PA PA jmm Martinez, Amelia as Williams, Irene, RN RN iw Idalia Foster, RN RN ss Briana Walden, RN RN ap3
[2021-08-27] MEDS ORDERED: ASPIRIN 81 MG CHEWABLE TABLET ONE (10:59)
[2021-08-27 11:28] VITALS: TEMP 98.4
[2021-08-27 11:33] VITALS: BP 103/66; O2SAT 100
--- NOTE | 2021-08-28 12:19 | EKG ---
Test Date: 2021-08-27 Test Time: 09:20:28 [employer]: QUINTIN MEASUREMENT RESULTS: Intervals: Rate: 79 AR: 150 QRSD: 82 QT: 374 QTc: 428 [place]: P: 66 AR: 150 QRS: 76 T: 76 INTERPRETIVE STATEMENTS: Normal sinus rhythm Nonspecific ST abnormality Abnormal ECG Compared to ECG 07/08/2021 11:01:27 ST (T wave) deviation now present Electronically Signed On 08-28-21 12:17:18 CDT by Franklin Thompson
== END 2021-08-27 11:17 | disposition home or self-care (01) ==
LOC: ER 08:45
DX: R07.89 Other chest pain (principal); I10 Essential (primary) hypertension; E11.9 Type 2 diabetes mellitus without complications; Z79.82 Long term (current) use of aspirin; Z20.822 Contact with and (suspected) exposure to COVID-19
CPT/HCPCS: 87088; 85025; 87086; 80048; 36415; 83735; 85610; 80076; 84484; 83880; 71045; U0003; 81003; 81015; 93005

== ENCOUNTER 2023-03-30 07:21 | Observation (INO) | payer MEDICARE, OTHER ==
--- OUTSIDE RECORDS SUMMARY | 2023-03-30 07:24 | XMS REPORT | Continuity of Care Document ---
Author Name Unknown Address [address] [facility] [address] [place] [address] [facility] [address] [facility]. [address] [place] [address] Care Team Providers Care Military Technician Name Role Phone AzevedoMera Attending Clinician Unavailable Boy Attending Clinician Unavailable Boy Admitting Clinician Unavailable Payers Payer Name Policy Type Policy Number Effective Date Expirati on Date Source [facility]MEDICARE REPLACEMENT HMO) [id number] 00:00:00 Problems Condition Name Condition Details Condition Category Status Onset Date Resolution Date Last Treatment Date Treating Clinician Comments Source Essential hypertensi on Essential Hypertensi on Problem Active 2022-03 00:00: 00 [facility] Hyperlipid emia due to type 2 diabetes mellitus Hyperlipid emia Due to Type 2 Diabetes Mellitus Problem Active 2022-03 00:00: 00 [facility] [id number] Controlled type 2 diabetes mellitus without complicati on, without long-term current use of insulin Problem [facility] Diabetes mellitus without complicati on Diabetes DMII without complicati ons Problem [facility] [id number] Primary osteoarthr itis of both knees Problem [facility] High cholestero l High cholestero l Problem [facility] [id number] Mixed hyperlipid emia Problem [facility] Hypertensi on HTN (hypertens ion) Problem [facility] Social History Social Habit Start Date Stop Date Quantity Comments Source History of Tobacco Use [facility] Sex Assigned At [facility] Smoking Status Start Date Stop Date Source Never Smoker [facility] Medications Ordered Medication Name Filled Medication Name Start Date Stop Date Current Medication? Ordering Clinician Indication Dosage Frequency Signature (SIG) Comments Components Source True Metrix Blood Glucose Test True Metrix Blood Glucose Test 09-03 00:00: 00 Yes Na Azevedo as directed [facility] Amlodipine Besylate Amlodipine Besylate Yes Na Azevedo 1 tablet [facility] Metformin HCl Metformin HCl Yes Na Azevedo 1 tablet with a meal [facility] Aspirin 81 MG Aspirin 81 MG No 1{table t} QD Aspirin 81 MG tiZANidine HCl 2 MG tiZANidine HCl 2 MG No QD tiZANidine HCl 2 MG Atorvastati n Calcium 10 MG Atorvastati n Calcium 10 MG No 1{table t} QD Atorvastat in Calcium 10 MG metFORMIN HCl 500 MG metFORMIN HCl 500 MG No 1{table t_with_ a_meal} TID metFORMIN HCl 500 MG True Metrix Blood Glucose Test - True Metrix Blood Glucose Test - No QD True Metrix Blood Glucose Test - amLODIPine Besylate 10 MG amLODIPine Besylate 10 MG No 1{table t} QD amLODIPine Besylate 10 MG Lisinopril 20 MG Lisinopril 20 MG No 1{table t} QD Lisinopril 20 MG Lisinopril 20 MG Lisinopril 20 MG No 1{table t} QD Lisinopril 20 MG Atorvastati n Calcium 10 MG Atorvastati n Calcium 10 MG No 1{table t} QD Atorvastat in Calcium 10 MG metFORMIN HCl 500 MG metFORMIN HCl 500 MG No 1{table t_with_ a_meal} TID metFORMIN HCl 500 MG Aspirin 81 MG Aspirin 81 MG No 1{table t} QD Aspirin 81 MG amLODIPine Besylate 10 MG amLODIPine Besylate 10 MG No 1{table t} QD amLODIPine Besylate 10 MG True Metrix Blood Glucose Test - True Metrix Blood Glucose Test - No QD True Metrix Blood Glucose Test - Aspirin 81 MG Aspirin 81 MG No 1{table t} QD Aspirin 81 MG Atorvastati n Calcium 10 MG Atorvastati n Calcium 10 MG No 1{table t} QD Atorvastat in Calcium 10 MG metFORMIN HCl 500 MG metFORMIN HCl 500 MG No 1{table t_with_ a_meal} TID metFORMIN HCl 500 MG True Metrix Blood Glucose Test - True Metrix Blood Glucose Test - No QD True Metrix Blood Glucose Test - Lisinopril 20 MG Lisinopril 20 MG No 1{table t} QD Lisinopril 20 MG amLODIPine Besylate 10 MG amLODIPine Besylate 10 MG No 1{table t} QD amLODIPine Besylate 10 MG Lisinopril 20 MG Lisinopril 20 MG No 1{table t} QD Lisinopril 20 MG Atorvastati n Calcium 10 MG Atorvastati n Calcium 10 MG No 1{table t} QD Atorvastat in Calcium 10 MG metFORMIN HCl 500 MG metFORMIN HCl 500 MG No 1{table t_with_ a_meal} TID metFORMIN HCl 500 MG Aspirin 81 MG Aspirin 81 MG No 1{table t} QD Aspirin 81 MG amLODIPine Besylate 10 MG amLODIPine Besylate 10 MG No 1{table t} QD amLODIPine Besylate 10 MG True Metrix Blood Glucose Test - True Metrix Blood Glucose Test - No QD True Metrix Blood Glucose Test - metFORMIN HCl 500 MG metFORMIN HCl 500 MG No 1{table t_with_ a_meal} TID metFORMIN HCl 500 MG Lisinopril 20 MG Lisinopril 20 MG No 1{table t} QD Lisinopril 20 MG amLODIPine Besylate 5 MG amLODIPine Besylate 5 MG No 1{table t} QD amLODIPine Besylate 5 MG Aspirin 81 MG Aspirin 81 MG No 1{table t} QD Aspirin 81 MG Atorvastati n Calcium 10 MG Atorvastati n Calcium 10 MG No 1{table t} QD Atorvastat in Calcium 10 MG True Metrix Blood Glucose Test - True Metrix Blood Glucose Test - No QD True Metrix Blood Glucose Test - Lisinopril 20 MG Lisinopril 20 MG No 1{table t} QD Lisinopril 20 MG True Metrix Blood Glucose Test - True Metrix Blood Glucose Test - No QD True Metrix Blood Glucose Test - Aspirin 81 MG Aspirin 81 MG No 1{table t} QD Aspirin 81 MG Atorvastati n Calcium 10 MG Atorvastati n Calcium 10 MG No 1{table t} QD Atorvastat in Calcium 10 MG metFORMIN HCl 500 MG metFORMIN HCl 500 MG No 1{table t_with_ a_meal} TID metFORMIN HCl 500 MG amLODIPine Besylate 10 MG amLODIPine Besylate 10 MG No 1{table t} QD amLODIPine Besylate 10 MG Lisinopril 20 MG Lisinopril 20 MG No 1{table t} QD Lisinopril 20 MG True Metrix Blood Glucose Test - True Metrix Blood Glucose Test - No QD True Metrix Blood Glucose Test - Aspirin 81 MG Aspirin 81 MG No 1{table t} QD Aspirin 81 MG Atorvastati n Calcium 10 MG Atorvastati n Calcium 10 MG No 1{table t} QD Atorvastat in Calcium 10 MG metFORMIN HCl 500 MG metFORMIN HCl 500 MG No 1{table t_with_ a_meal} TID metFORMIN HCl 500 MG amLODIPine Besylate 10 MG amLODIPine Besylate 10 MG No 1{table t} QD amLODIPine Besylate 10 MG Aspirin 81 MG Aspirin 81 MG No 1{table t} QD Aspirin 81 MG tiZANidine HCl 2 MG tiZANidine HCl 2 MG No QD tiZANidine HCl 2 MG Atorvastati n Calcium 10 MG Atorvastati n Calcium 10 MG No 1{table t} QD Atorvastat in Calcium 10 MG metFORMIN HCl 500 MG metFORMIN HCl 500 MG No 1{table t_with_ a_meal} TID metFORMIN HCl 500 MG True Metrix Blood Glucose Test - True Metrix Blood Glucose Test - No QD True Metrix Blood Glucose Test - amlodipine 10 mg tablet TAKE 1 TABLET BY MOUTH ONCE DAILY amlodipine 10 mg tablet TAKE 1 TABLET BY MOUTH ONCE DAILY No amlodipine 10 mg tablet TAKE 1 TABLET BY MOUTH ONCE DAILY [facility] amLODIPine Besylate 10 MG amLODIPine Besylate 10 MG No 1{table t} QD amLODIPine Besylate 10 MG Lisinopril 20 MG Lisinopril 20 MG No 1{table t} QD Lisinopril 20 MG amlodipine 5 mg tablet Take 1 tablet every day by oral route for 90 days. amlodipine 5 mg tablet Take 1 tablet every day by oral route for 90 days. No 1 Q1D amlodipine 5 mg tablet Take 1 tablet every day by oral route for 90 days. [facility] atorvastati n 10 mg tablet Take 1 tablet every day by oral route. atorvastati n 10 mg tablet Take 1 tablet every day by oral route. No 1 Q1D atorvastat in 10 mg tablet Take 1 tablet every day by oral route. [facility] lisinopril 20 mg tablet Take 1 tablet every day by oral route. lisinopril 20 mg tablet Take 1 tablet every day by oral route. No 1 Q1D lisinopril 20 mg tablet Take 1 tablet every day by oral route. [facility] metformin 500 mg tablet TAKE 1 TABLET BY MOUTH TWICE DAILY PATIENT NEEDS APPOINTMENT FOR FUTURE REFILLS metformin 500 mg tablet TAKE 1 TABLET BY MOUTH TWICE DAILY PATIENT NEEDS APPOINTMENT FOR FUTURE REFILLS No metformin 500 mg tablet TAKE 1 TABLET BY MOUTH TWICE DAILY PATIENT NEEDS APPOINTMEN T FOR FUTURE REFILLS [facility] OneTouch Delica Plus Lancet 33 gauge USE 1 TO CHECK GLUCOSE ONCE DAILY OneTouch Delica Plus Lancet 33 gauge USE 1 TO CHECK GLUCOSE ONCE DAILY No OneTouch Delica Plus Lancet 33 gauge USE 1 TO CHECK GLUCOSE ONCE DAILY [facility] OneTouch Verio test strips USE 1 STRIP TO CHECK GLUCOSE ONCE DAILY OneTouch Verio test strips USE 1 STRIP TO CHECK GLUCOSE ONCE DAILY No OneTouch Verio test strips USE 1 STRIP TO CHECK GLUCOSE ONCE DAILY [facility] Aspirin Aspirin Yes Na Azevedo 1 tablet [facility] Lisinopril Lisinopril Yes Na Azevedo 1 tablet [facility] Atorvastati n Calcium Atorvastati n Calcium Yes Na Zaevedo [address] [facility] Immunizations Ordered Immunization Name Filled Immunization Name Date Status Comments Source influenza, high-dose, quadrivalent - ML influenza, high-dose, quadrivalent - ML Unknown Completed [facility] influenza, high-dose, quadrivalent - ML influenza, high-dose, quadrivalent - ML Unknown Completed [facility] Vital Signs Vital Name Observation Time Observation Value Comments S ource Height 2022-11-30 00:00:00 54 [in_i] [facility] Body Weight 2022-11-30 00:00:00 114 [lb_av] [facility] BP Diastolic 2022-11-30 00:00:00 78 mm[Hg] [facility] BMI (Body Mass Index) 2022-11-30 00:00:00 27.5 kg/m2 [facility] BP Systolic 2022-11-30 00:00:00 135 mm[Hg] [facility] height 2021-11-20 10:00:00 60.00 [in_i] Com [facility] weight 2021-11-20 10:00:00 110.6 [lb_av] Co mmon [facility] temperature 2021-11-20 10:00:00 97.6 [degF] Com [facility] bmi 2021-11-20 10:00:00 21.60 kg/m2 Comm on [facility] oximetry 2021-11-20 10:00:00 96 % [facility] respiratory rate 2021-11-20 10:00:00 15 /min [facility] blood pressure systolic 2021-11-20 10:00:00 121 mm[Hg] [facility] blood pressure diastolic 2021-11-20 10:00:00 71 mm[Hg] [facility] respiratory rate 2021-08-26 09:20:00 15 /min [facility] blood pressure systolic 2021-08-26 09:20:00 119 mm[Hg] [facility] blood pressure diastolic 2021-08-26 09:20:00 73 mm[Hg] [facility] height 2021-08-26 09:20:00 60.00 [in_i] [facility] weight 2021-08-26 09:20:00 110.0 [lb_av] [facility] mmon [facility] temperature 2021-08-26 09:20:00 98.0 [degF] [facility] bmi 2021-08-26 09:20:00 21.48 kg/m2 Comm on [facility] oximetry 2021-08-26 09:20:00 99 % [facility] height 2021-08-26 09:20:00 60.00 [in_i] [facility] weight 2021-08-26 09:20:00 110.0 [lb_av] [facility] mmon [facility] temperature 2021-08-26 09:20:00 98.0 [degF] [facility] bmi 2021-08-26 09:20:00 21.48 kg/m2 Comm on [facility] oximetry 2021-08-26 09:20:00 99 % Com[facility] respiratory rate 2021-08-26 09:20:00 15 /min [facility] blood pressure systolic 2021-08-26 09:20:00 119 mm[Hg] [facility] blood pressure diastolic 2021-08-26 09:20:00 73 mm[Hg] [facility] height 2021-04-17 15:40:00 60.00 [in_i] [facility] weight 2021-04-17 15:40:00 114.2 [lb_av] [facility] m[facility] temperature 2021-04-17 15:40:00 97.7 [degF] [facility] bmi 2021-04-17 15:40:00 22.30 kg/m2 Comm [facility] oximetry 2021-04-17 15:40:00 97 % Com[facility] respiratory rate 2021-04-17 15:40:00 16 /min [facility] blood pressure systolic 2021-04-17 15:40:00 136 mm[Hg] [facility] blood pressure diastolic 2021-04-17 15:40:00 71 mm[Hg] [facility] Plan of Care Planned Activity Planned Date Details Comments Source Diagnostic Test Pending 2022-11-30 00:00:00 CMP, serum or plasma [code = CMP, serum or plasma] [facility] Diagnostic Test Pending 2022-11-30 00:00:00 CBC w/ auto diff [code = CBC w/ auto diff] [facility] Diagnostic Test Pending 2022-11-30 00:00:00 lipid panel, serum [code = lipid panel, serum] [facility] Diagnostic Test Pending 2022-11-30 00:00:00 HbA1c (hemoglobin A1c), blood [code = HbA1c (hemoglobin A1c), blood] [facility] Diagnostic Test Pending 2022-11-30 00:00:00 microalbumin/creati nine, mass ratio, urine [code = microalbumin/creati nine, mass ratio, urine] [facility] Diagnostic Test Pending 2022-11-30 00:00:00 urinalysis, complete [code = urinalysis, complete] [facility] Diagnostic Test Pending 2022-11-30 00:00:00 TSH, serum, reflex free T4 [code = TSH, serum, reflex free T4] [facility] Encounters Start Date/Time End Date/Time Encounter Type Admission Type Attending [facility] Care Facility Care Department Encounter ID Source 2021-11-18 10:02[facility]01 [id number] 2021-07-11 11:09:01 [facility] [id number] 2021-04-15 09:32:01 [facility] [id number] [facility] 2021-03-26 14:31:41 [facility] [id number] [facility] 2021-03-26 14:31:14 [facility] [id number] [facility] 2021-03-26 12:46:33 [facility] [id number] [facility] 2021-03-26 11:27:39 [facility] [id number] [facility] 2023-01-18 00:00:00 2023-01-18 00:00:00 Outpatient Bui_Q_HOU_M D VFP VFP [id number] [facility] 2022-11-30 00:00:00 2022-11-30 00:00:00 Outpatient Bui_Q_HOU_M D VFP VFP [id number] [facility] 2022-11-30 00:00:00 2022-11-30 00:00:00 Tete Howard, DO: [id number] [address] [facility], [address], [place] [address] , Ph. VFP [place] - [facility] - [place] - VM_HOU_Shad ow [address] [id number] [facility] Practic e 2022-11-25 00:00:00 2022-11-25 00:00:00 Outpatient Bui_Q_HOU_M D VFP VFP [id number] [facility] Practic e 2022-07-04 00:00:00 2022-07-04 00:00:00 Outpatient DMG DM [id number] [facility] 2022-01-26 00:00:00 2022-01-26 00:00:00 [facility]EL[facility] [id number] [facility] 2021-12-16 00:00:00 2021-12-16 00:00:00 Outpatient DMG DMG [id number] [facility] 2021-11-20 00:00:00 2021-11-20 00:00:00 OFFICE VISIT ESTAB PT LEVEL 4 [facility] [id number] [facility] 2021-08-26 00:00:00 2021-08-26 00:00:00 SUB ANNUAL [facility] WELLNESS VISIT [facility] [id number] [facility] 2021-08-26 00:00:00 2021-08-26 00:00:00 OFFICE VISIT EST PT LEVEL 3 STLMLC [facility] [id number] [facility] 2021 00:00:00 2021 00:00:00 (TEL) STLMLC [facility] [id number] [facility] 2021-04-17 00:00:00 2021-04-17 00:00:00 OFFICE VISIT ESTAB PT LEVEL 4 [facility]C [facility] [id number] [facility] 2021-03-10 00:00:00 2021-03-10 00:00:00 OL DIG E/M SVC 21+ MIN STLMLC ST[facility]C [id number] [facility] 2020-04-25 00:00:00 2020-04-25 00:00:00 Outpatient STLMLC [facility] [id number] [facility] 2019-12-07 00:00:00 2019-12-07 00:00:00 Outpatient STLMLC [facility] [id number] [facility] 2019-12-07 00:00:00 2019-12-07 00:00:00 Outpatient STLMLC [facility] [id number] [facility] 2019-11-30 00:00:00 2019-11-30 00:00:00 Outpatient STLMLC [facility] [id number] [facility] 2019-11-30 00:00:00 2019-11-30 00:00:00 Outpatient STLMLC [facility] [id number] [facility] 2019-11-30 00:00:00 2019-11-30 00:00:00 Outpatient STLMLC [facility] [id number] [facility] 2019-09-04 11:20:00 2019-09-04 11:20:00 Out[facility] [id number] [facility]
[2023-03-30] MEDS ORDERED: ASPIRIN 81 MG CHEWABLE TABLET ONE (07:49)
[2023-03-30 07:54] LABS: Hematocrit 44.7 % (36.0-45.0); MCV 92.1 fL (80-100); MPV 8.9 fL (7.6-11.3); Platelets 229 thou/uL (152-406); RBC Red Blood Cell Count 4.85 M/uL (3.86-4.86)
[2023-03-30 08:12] LABS: Albumin 3.4 g/dL (3.4-5.0); Bilirubin Direct 0.1 mg/dL (0-0.2); Bilirubin Indirect, Calculated 0.4 mg/dL (0.2-0.8); Bilirubin Total 0.5 mg/dL (0.2-1.0); Magnesium 2.2 mg/dL (1.6-2.4); Potassium 4.2 mEq/L (3.5-5.1); Protein, Total 6.7 g/dL (6.4-8.2); Troponin High Sensitivity 46.6 pg/mL (<58.9)
--- NOTE | 2023-03-30 08:29 | RAD REPORT ---
EXAM DESCRIPTION: RADChest Single View03/30/2023 7:49 am CLINICAL HISTORY: CHEST PAIN COMPARISON: Chest Single View dated 08/27/2021; Chest Pa And Lat (2 Views) dated 07/08/2021; Chest Sin gle View dated 04/10/2017; Chest Single View dated 08/02/2015 TECHNIQUE: Portable AP view of the chest. FINDINGS: The lungs are clear. Small right basal calcified granuloma is stable. No pneumothorax or e ffusion. The cardiomediastinal contours are unremarkable. IMPRESSION: No acute cardiopulmonary process.
--- NOTE | 2023-03-30 09:30 | ER ---
Nurse's Notes [facility] Name: Miriam Ojeda Age: 77 yrs Sex: Female : 1945 Arrival Date: 03/30/2023 Time: 07:21 Bed 2 Private MD: Diagnosis: Chest pain, unspecified Presentation: 03/30 07:38 Chief complaint: Patient states: she started having chest pain approx one hour [employer], and ap3 took one of her nitroglycerin sublingual. patient states her symptoms have improved. Coronavirus screen: At this time, the client does not indicate any symptoms associated with coronavirus-19. Ebola Screen: No symptoms or risks identified at this time. Initial Sepsis Screen: Does the patient meet any 2 criteria? No. Patient's initial sepsis screen is negative. Does the patient have a suspected source of infection? No. Patient's initial sepsis screen is negative. Risk Assessment: Do you want to hurt yourself or someone else? Patient reports no desire to harm self or others. Onset of symptoms was March 30, 2023 at 06:30. 07:38 Method Of Arrival: Wheelchair ap3 07:38 Acuity: PELON 2 ap3 07:42 Care prior to arrival: Medication(s) given: ASA, 81 mg, x 2. ap3 Triage Assessment: 07:41 General: Appears in no apparent distress. Behavior is calm, cooperative, appropriate ap3 for age. Pain: Complains of pain in chest. Neuro: Level of Consciousness is awake, alert, obeys commands, Oriented to person, place, time, situation, Appropriate for age. Cardiovascular: Reports chest pain. Respiratory: Airway is patent Respiratory effort is even, unlabored, Respiratory pattern is regular, symmetrical. Historical: - Allergies: 07:40 No Known Allergies; ap3 - PMHx: 07:40 Diabetes - NIDDM; Hyperlipidemia; Hypertension; knee pain; nephrolithiasis; ap3 - Immunization history:: Client reports receiving the 2nd dose of the Covid vaccine, Flu vaccine is up to date. - Social history:: Smoking status: Patient denies any tobacco usage or history of. - Family history:: not pertinent. Screenin:41 Abuse screen: Denies threats or abuse. Nutritional screening: No deficits noted. ap3 Tuberculosis screening: No symptoms or risk factors identified. 07:45 [facility] ED Fall Risk Assessment (Adult) History of falling in the last 3 months, ko1 including since admission No falls in past 3 months (0 pts) Confusion or Disorientation No (0 pts) Intoxicated or Sedated No (0 pts) Impaired Gait No (0 pts) Mobility Assist Device Used No (0 pt) Altered Elimination No (0 pt) Score/Fall Risk Level 0 - 2 = Low Risk Oriented to surroundings, Maintained a safe environment, Educated pt \T\ family on fall prevention, incl call for assistance when getting out of bed, Assessed \T\ reinforced patient's understanding of fall precautions, Provided non-skid footwear, Hourly rounding (assess needs \T\ fall precautionary measures) done, Used ambulatory aids as needed (educated on \T\ assisted with), Used gait belt as appropriate. Assessment: 07:45 General: Appears in no apparent distress. Behavior is calm, cooperative, appropriate ko1 for age. Pain: Pain does not radiate. Pain began gradually. Vital Signs: 07:38 BP 142 / 79; Pulse 73; Resp 17; Temp 97.9(O); Weight 52.16 kg; Height 5 ft. 0 in. ; ap3 07:45 BP 119 / 67; Pulse 67; Resp 19; Pulse Ox 98% on R/A; ko1 09:29 BP 132 / 78; Pulse 74; Resp 15; Pulse Ox 98% ; ko1 11:10 BP 112 / 66; Pulse 76; Resp 18; Pulse Ox 98% on R/A; ld1 07:38 Body Mass Index 22.46 (52.16 kg, 152.4 cm) ap3 ED Course: 07:23 Patient arrived in ED. im 07:26 Philippe Kemp MD is Attending Physician. rt 07:38 Briana Walden, TERRI is Primary Nurse. ap3 07:40 Triage completed. ap3 07:41 Inserted saline lock: 22 gauge in right forearm, using aseptic technique. Blood ap3 collected. Patient maintains SpO2 saturation greater than 95% on room air. 07:41 Arm band placed on left wrist. ap3 07:42 Patient has correct armband on for positive identification. Bed in low position. Call ap3 light in reach. Side rails up X 1. Adult w/ patient. 07:43 Basic Metabolic Panel Sent. ko1 07:43 CBC with Diff Sent. ko1 07:43 LFT's Sent. ko1 07:43 Magnesium Sent. ko1 07:43 Troponin HS Sent. ko1 07:45 Provided Education on: ns. Client placed on continuous cardiac and pulse oximetry ko1 monitoring. NIBP monitoring applied. security monitor on. Door closed. Noise minimized. Lights dimmed. Warm blanket given. 07:51 XRAY Chest (1 view) In Process Unspecified. EDMS 09:29 Chintan Hernández MD is Hospitalizing Provider. rt 14:38 No provider procedures requiring assistance completed. Patient admitted, IV remains in ko1 place. 14:54 Primary Nurse role handed off by Briana Walden, TERRI ko1 14:54 Isamar Goodwin, RN is Primary Nurse. ko1 Administered Medications: 07:52 Drug: Aspirin PO 162 mg PO once Route: PO; ko1 Medication: 07:45 VIS not applicable for this client. ko1 Outcome: 09:29 Decision to Hospitalize by Provider. rt 14:39 Admitted to ER Hold. Please see [facility] for further documentation. ko1 14:39 Condition: stable 14:39 Instructed on the need for admit, 15:03 Admitted to Tele accompanied by tech, via wheelchair, room 228, with chart, Report ko1 called to TERRI Costa 15:25 Patient left the ED. ko1 Signatures: Dispatcher [employer] EDMS Briana Walden, TERRI [email or web address] Andreea Valentin RN RN ld1 Isamar Goodwin, TERRI RN ko1 Philippe Kemp MD MD rt Adele Frank im
--- NOTE | 2023-03-30 09:30 | EDPHYS ---
Physician Documentation [facility] Name: Miriam Ojeda Age: 77 yrs Sex: Female : 1945 Arrival Date: 03/30/2023 Time: 07:21 Bed 2 Private MD: ED Physician Philippe Kemp HPI: 03/30 09:30 This 77 yrs old Female presents to ER via Wheelchair with complaints of Chest rt Pain. 09:30 Patient presents to the ED with chest pain starting last night. Has subsequently rt resolved. Reported mild shortness of breath associated with that, no other symptoms. She did take 162 of aspirin earlier today. Denies other acute complaints at this time, symptoms are moderate in severity, pressure-like in nature, nonradiating, no other aggravating or alleviating factors.. Historical: - Allergies: 07:40 No Known Allergies; ap3 - PMHx: 07:40 Diabetes - NIDDM; Hyperlipidemia; Hypertension; knee pain; nephrolithiasis; ap3 - Immunization history:: Client reports receiving the 2nd dose of the Covid vaccine, Flu vaccine is up to date. - Social history:: Smoking status: Patient denies any tobacco usage or history of. - Family history:: not pertinent. ROS: 09:30 Constitutional: Negative for fever, chills, and weight loss, Abdomen/GI: Negative for rt abdominal pain, nausea, vomiting, diarrhea, and constipation, MS/Extremity: Negative for injury and deformity, Skin: Negative for injury, rash, and discoloration, Neuro: Negative for headache, weakness, numbness, tingling, and seizure, Psych: Negative for depression, anxiety, suicide ideation, homicidal ideation, and hallucinations, 09:30 Cardiovascular: Positive for chest pain, Negative for edema, 09:30 Respiratory: Positive for shortness of breath, Negative for cough, Exam: 09:30 Constitutional: This is a well developed, well nourished patient who is awake, alert, rt and in no acute distress. Head/Face: Normocephalic, atraumatic. Chest/axilla: Normal chest wall appearance and motion. Nontender with no deformity. No lesions are appreciated. Cardiovascular: Regular rate and rhythm with a normal S1 and S2. No gallops, murmurs, or rubs. Normal PMI, no JVD. No pulse deficits. Respiratory: Lungs have equal breath sounds bilaterally, clear to auscultation and percussion. No rales, rhonchi or wheezes noted. No increased work of breathing, no retractions or nasal flaring. Abdomen/GI: Soft, non-tender, with normal bowel sounds. No distension or tympany. No guarding or rebound. No evidence of tenderness throughout. Skin: Warm, dry with normal turgor. Normal color with no rashes, no lesions, and no evidence of cellulitis. MS/ Extremity: Pulses equal, no cyanosis. Neurovascular intact. Full, normal range of motion. Neuro: Awake and alert, GCS 15, oriented to person, place, time, and situation. Cranial nerves II-XII grossly intact. Motor strength 5/5 in all extremities. Sensory grossly intact. Cerebellar exam normal. Normal gait. Psych: Awake, alert, with orientation to person, place and time. Behavior, mood, and affect are within normal limits. 09:30 ECG was reviewed by the Attending Physician. Vital Signs: 07:38 BP 142 / 79; Pulse 73; Resp 17; Temp 97.9(O); Weight 52.16 kg; Height 5 ft. 0 in. ; ap3 07:45 BP 119 / 67; Pulse 67; Resp 19; Pulse Ox 98% on R/A; ko1 09:29 BP 132 / 78; Pulse 74; Resp 15; Pulse Ox 98% ; ko1 11:10 BP 112 / 66; Pulse 76; Resp 18; Pulse Ox 98% on R/A; ld1 07:38 Body Mass Index 22.46 (52.16 kg, 152.4 cm) ap3 MDM: 07:29 Patient medically screened. rt 09:30 Differential diagnosis: Nonspecific chest pain, ACS, pneumonia. HEART Score: History: rt Moderately Suspicious (1), ECG: Normal (0), Age: > or = 65 years (2), Risk Factors: > or = 3 Risk factors for atherosclerotic disease (2), Troponin: < or = 1 x Normal Limit (0), Total Score = 5. The patient was given aspirin in the Emergency Department. Data reviewed: vital signs, nurses notes, lab test result(s), EKG, radiologic studies. Consideration of Admission/Observation Patient was admitted/placed on observation. Management of patient was discussed with the following: Hospitalist: Agrees to admit. I considered the following discharge prescriptions or medication management in the emergency department Medications were administered in the Emergency Department. See MAR. Independent interpretation of the following test(s) in the Emergency Department X-Ray: My interpretation is No consolidation seen on interpretation of x-ray images. Test considered but Not performed: CT: Low suspicion for pulmonary embolism, CT angiogram not indicated. Care significantly affected by the following chronic conditions: Diabetes, Hypertension. Counseling: I had a detailed discussion with the patient and/or guardian regarding the historical points, exam findings, and any diagnostic results supporting the discharge/admit diagnosis, lab results, radiology results, the need for further work-up and treatment in the hospital. Response to treatment: the patient's symptoms have markedly improved after treatment. 03/30 07:33 Order name: Basic Metabolic Panel; Complete Time: 08:41 rt 03/30 07:33 Order name: CBC with Diff; Complete Time: 08:41 rt 03/30 07:33 Order name: LFT's; Complete Time: 08:41 rt 03/30 07:33 Order name: Magnesium; Complete Time: 08:41 rt 03/30 07:33 Order name: Troponin HS; Complete Time: 08:41 rt 03/30 12:35 Order name: Glucose, Ancillary Testing; Complete Time: 12:37 EDMS 03/30 12:43 Order name: Troponin High Sensitivity; Complete Time: 13:07 EDMS 03/30 07:33 Order name: XRAY Chest (1 view); Complete Time: 08:41 rt 03/30 07:33 Order name: EKG; Complete Time: 07:34 rt 03/30 07:33 Order name: Cardiac monitoring; Complete Time: 07:42 rt 03/30 07:33 Order name: EKG - Nurse/Tech; Complete Time: 08:00 rt 03/30 07:33 Order name: IV Saline Lock; Complete Time: 07:42 rt 03/30 07:33 Order name: Labs collected and sent; Complete Time: 07:43 rt 03/30 07:33 Order name: O2 Per Protocol; Complete Time: 07:42 rt 03/30 07:33 Order name: O2 Sat Monitoring; Complete Time: 07:42 rt EC:30 Rate is 69 beats/min. Rhythm is regular, Normal Sinus Rhythm with No ectopy. QRS [place] rt is Normal. [place] interval is normal. QRS interval is normal. QT interval is normal. No Q waves. T waves are Normal. No ST changes noted. Interpreted by me. Administered Medications: 07:52 Drug: Aspirin PO 162 mg PO once Route: PO; ko1 Disposition Summary: 03/30/23 09:29 Hospitalization Ordered Notes: Hospitalization Status: Observation rt Provider: Chintan Hernández rt Condition: Stable rt Problem: new rt Symptoms: have improved rt Bed/Room Type: Standard rt Location: Telemetry/MedSurg (observation)(03/30/23 14:30) kb3 Room Assignment: 228(03/30/23 14:30) kb3 Diagnosis - Chest pain, unspecified rt Forms: - Medication Reconciliation Form rt - SBAR form rt - Leadership Thank You Letter rt Signatures: Dispatcher [employer] EDMS Sarah Lazo Lee, SHOE SPRAYER-C SHOE SPRAYER-Cla1 Briana Walden RN RN ap3 Vielka Coronado RN RN kb3 Isamar Goodwin RN RN ko1 Philippe Kemp MD MD rt Corrections: (The following items were deleted from the chart) 11:07 09:29 Telemetry/MedSurg (observation) rt kb3 11:07 09:29 rt kb3 14:30 11:07 RUST ER HOLD kb3 bd 14:30 11:07 ERHOLD- kb3 bd 14:30 14:30 Telemetry/MedSurg (observation) bd kb3 14:30 14:30 228 bd kb3
[2023-03-30] MEDS ORDERED: ONDANSETRON 4 MG/2 ML VIAL IV PRN (11:39)
[2023-03-30] MEDS: INSULIN REGULAR (HUMAN) 100 UNIT/ML SQ SCH ×2 (11:39→16:39)
[2023-03-30 12:11] VITALS: BMI 22.4
--- NOTE | 2023-03-30 14:17 | P.HP ---
Certification for Inpatient Patient admitted to: Observation With expected LOS: <2 Midnights Patient will require the following post-hospital care: None Practitioner: I am a practitioner with admitting privileges, knowledge of patient current condition, hospital course, and medical plan of care. Services: Services provided to patient in accordance with Admission requirements found in Title 42 Section 412.3 of the Code of Federal Regulations Patient History Date of Service: 03/30/23 Reason for admission: Chest pain History of Present Illness: 77-year-old female with history of diabetes mellitus type [id number], hypertension, hyperlipidemia presents the emergency department chief complaint of chest pain. She reports waking up around 6 AM this morning with chest pain radiating around her left shoulder to her back. She reports taking a dose of sublingual nitroglycerin from a family member which improved her symptoms after 20 about 1 hour of pain. She had difficulty describing the pain further than "it hurt". She denies any associated shortness of breath, nausea, or diaphoresis. She was evaluated in the emergency department her initial high suspicion was 46.6 EKG without STEMI criteria she does report having a stress test with her hotel custodian in April 2022 which was reportedly normal. ED physician wishes admit patient under observation for ACS rule out. Allergies No Known Allergies Allergy (Unverified 05/01/13 04:23) Home Medications: Amlodipine [Norvasc*] 5 mg PO DAILY 05/01/13 Fluticasone Propionate [Flonase] 1 - 2 sprays IH DAILY 05/01/13 Meloxicam [Mobic] 15 mg PO DAILY PRN 05/01/13 lisinopriL [Prinivil*] 20 mg PO DAILY 05/01/13 - Past Medical/Surgical History Has patient received pneumonia vaccine in the past: Yes Diabetic: No -: HTN -: Diabetes mellitus type [id number]-nwenhhhlz -: Hyperlipidemia -: Hysterectomy Psychosocial/ Personal History: Lives at home with family - Social History Smoking Status: Never smoker Alcohol use: No CD- Drugs: No Caffeine use: Yes Place of Residence: Home Review of Systems 10-point ROS is otherwise unremarkable Cardiovascular: Chest Pain Physical Examination - Vital Signs Blood Pressure: 105/72 Pulse: 94 Respirations: 18 Pulse Ox (%): 98 - Physical Exam General: Alert, In no apparent distress, Oriented x3 HEENT: Atraumatic, PERRLA, EOMI Neck: Supple, 2+ carotid pulse no bruit Respiratory: Clear to auscultation bilaterally, Normal air movement Cardiovascular: Regular rate/rhythm, Normal S1 S2 Gastrointestinal: Normal bowel sounds Musculoskeletal: No tenderness Integumentary: No rashes Neurological: Normal speech, Normal strength at 5/5 x4 extr, Normal tone - Studies Laboratory Data (last 24 hrs) 03/30/23 03/30/23 07:40 07:40 WBC 6.20 Hgb 14.7 Hct 44.7 Plt Count 229 Sodium 138 Potassium 4.2 BUN 21 H Creatinine 0.91 Glucose 243 H Magnesium 2.2 Total Bilirubin 0.5 AST 19 ALT 22 Alkaline Phosphatase 106 Assessment and Plan - Plan Assessment: Chest pain rule out ACS Diabetes mellitus type [id number] hypertension Hyperlipidemia Plan: Chest pain rule out ACS Trend troponins, monitor on telemetry Cardiology consult Reports stress test in April 2022 normal Denies having heart catheterization in the past Diabetes mellitus type [id number]-lzixltoef ACHS Accu-Chek, sliding scale insulin hypertension Hyperlipidemia Continue home medications DVT PPX: Lovenox Code status: Full Discharge Plan: Home Plan to discharge in: 24 Hours - Advance Directives Does patient have a Living Will: No Does patient have a Durable POA for Healthcare: No - Code Status/Comfort Care Code Status Assessed: Yes (Full code) Critical Care: No Time Spent Managing Pts Care (In Minutes): 55
[2023-03-30] MEDS ORDERED: lisinopriL 20 MG TAB PO SCH (16:00)
[2023-03-30] MEDS ORDERED: AMLODIPINE 5 MG TAB PO SCH (16:00)
[2023-03-30 16:54] VITALS: BP 125/69; TEMP 98.2
--- NOTE | 2023-03-30 19:15 | P.DS ---
Admission Date: 03/30/23 Discharge Date: 03/30/23 Disposition: AMA-LEFT AGAINST MEDICAL ADVIC Discharge Condition: FAIR Reason for Admission: Chest pain Consultations: Cardiology- Dr. Thompson Brief History of Present Illness: 77-year-old female with history of diabetes mellitus type 7tnk-uhhmoqx-pzqywldhi, hypertension, hyperlipidemia presents the emergency department chief complaint of chest pain. She reports waking up around 6 AM this morning with chest pain radiating around her left shoulder to her back. She reports taking a dose of sublingual nitroglycerin from a family member which improved her symptoms after 20 about 1 hour of pain. She had difficulty describing the pain further than "it hurt". She denies any associated shortness of breath, nausea, or diaphoresis. She was evaluated in the emergency department her initial high suspicion was 46.6 EKG without STEMI criteria she does report having a stress test with her hospital chief financial officer in April 2022 which was reportedly normal. ED physician wishes admit patient under observation for ACS rule out. Hospital Course: patient was admitted under observation for chest pain. Troponin trended flat, cardiology ordered stress test but patient decided to leave AMA rather than stay for stress test. She left the facility before I had the opportunity to further discuss risk/benefit of leaving prior to further evaluation with stress test. AMA for signed with nursing staff. Vital Signs/Physical Exam: Temp Pulse Resp BP Pulse Ox 98.2 F 75 16 125/69 93 03/30/23 16:00 03/30/23 16:00 03/30/23 16:00 03/30/23 16:00 03/30/23 16:00 Laboratory Data at Discharge: WBC 6.20 thou/uL (4.3-10.9) 03/30/23 07:40 Hgb 14.7 g/dL (12.0-15.0) 03/30/23 07:40 Hct 44.7 % (36.0-45.0) 03/30/23 07:40 Plt Count 229 thou/uL (152-406) 03/30/23 07:40 Sodium 138 mEq/L (136-145) 03/30/23 07:40 Potassium 4.2 mEq/L (3.5-5.1) 03/30/23 07:40 BUN 21 mg/dL (7-18) H 03/30/23 07:40 Creatinine 0.91 mg/dL (0.55-1.02) 03/30/23 07:40 Glucose 243 mg/dL (74-106) H 03/30/23 07:40 Magnesium 2.2 mg/dL (1.6-2.4) 03/30/23 07:40 Total Bilirubin 0.5 mg/dL (0.2-1.0) 03/30/23 07:40 AST 19 U/L (15-37) 03/30/23 07:40 ALT 22 U/L (13-56) 03/30/23 07:40 Alkaline Phosphatase 106 U/L (45-117) 03/30/23 07:40 Home Medications: Amlodipine [Norvasc*] 5 mg PO DAILY 05/01/13 lisinopriL [Prinivil*] 20 mg PO DAILY 05/01/13 Aspirin [[place]] 81 mg PO DAILY 03/30/23 Atorvastatin Calcium 10 mg PO BEDTIME 03/30/23 Metformin ER [Glucophage ER] 500 mg PO BID 03/30/23 Physician Discharge Instructions: Please follow up with your hospital chief financial officer. Return to ED for any new or worsening symptoms. Diet: AHA Followup: JIA RO [Primary Care Provider] - Franklin Thompson MD [ACTIVE - CAN ADMIT] - 2-3 Days Time spent managing pt's care (in minutes): 10
[2023-03-30] MEDS ORDERED: ATORVASTATIN 10 MG TAB PO SCH (21:00)
[2023-03-31 01:11] VITALS: O2SAT 98
[2023-03-31] MEDS ORDERED: ENOXAPARIN 40 MG/0.4 ML SQ SCH (09:00)
[2023-03-31] MEDS ORDERED: ENOXAPARIN 30 MG/0.3 ML SQ SCH (09:00)
[2023-03-31] MEDS ORDERED: ASPIRIN EC 81 MG TAB PO SCH (09:00)
== END 2023-03-30 19:09 | disposition left against medical advice (07) ==
LOC: ER 07:21 → ERHOLD 10:18 → 2ND 14:50
PROVIDERS: ADMIT Hospitalist; ATTEND Hospitalist
DX: R07.9 Chest pain, unspecified (principal); E11.9 Type 2 diabetes mellitus without complications; I10 Essential (primary) hypertension; E78.5 Hyperlipidemia, unspecified; Z53.29 Procedure and treatment not carried out because of patient's decision for other reasons
CPT/HCPCS: 93005; 85025; 80048; 36415; 83735; 82947 ×3; 80076; 84484 ×3; 71045; J1815; G0378